=== PATIENT | male | born 1985 | race American Indian/Alaskan Native ===

== ENCOUNTER 2020-03-29 05:52 | Emergency (ER) | payer MEDICAID ==
[2020-03-29 06:07] VITALS: BP 131/78
--- NOTE | 2020-03-29 06:23 | Emergency Department Report ---
ED Male HPI - General Chief complaint: Rectal Pain Stated complaint: HEMORRHOIDS Time Seen by Provider: 03/29/20 06:16 Source: patient Mode of arrival: Ambulatory Limitations: No Limitations - History of Present Illness Initial comments: 34-year-old male with history of hemorrhage emerged department complaining of flareup of hemorrhoids over the past few weeks due to constipation episodes. He request medication help resolve his hemorrhoid flareup. Reports no current hemoptysis, hematemesis or hematochezia. No fever, chills, sweats no lower abd ominal pain. Severity: mild, moderate Quality: burning, dull Improves with: none Worsens with: none new medication denies: urinary retention, fever, nausea/vomiting, incontinence - Related Data Previous Rx's Medication Instructions Recorded Last Taken Type Hydrocortisone [Anusol-Hc 2.5% TOP 0.5 gm RC BID #30 cream..g. 03/29/20 Unknown Rx CREAM] Lidocaine Viscous 2% 2.5 ml RC Q4HR PRN #120 ml 03/29/20 Unknown Rx Allergies Allergy/AdvReac Type Severity Reaction Status Date / Time No Known Allergies Allergy Verified 03/29/20 06:05 ED Review of Systems ROS: Stated complaint: HEMORRHOIDS Other details as noted in HPI Comment: All other systems reviewed and negative ED Past Medical Hx - Past Medical History Previous Medical History?: Yes Hx Seizures: Yes - Surgical History Past Surgical History?: No - Social History Smoking Status: Never Smoker Substance Use Type: None - Medications Home Medications: Home Medications Medication Instructions Recorded Confirmed Last Taken Type Hydrocortisone [Anusol-Hc 2.5% TOP 0.5 gm RC BID #30 cream..g. 03/29/20 Unknown Rx CREAM] Lidocaine Viscous 2% 2.5 ml RC Q4HR PRN #120 ml 03/29/20 Unknown Rx ED Physical Exam - General Limitations: No Limitations General appearance: alert, in no apparent distress - Head Head exam: Present: atraumatic, normocephalic - Eye Eye exam: Present: normal appearance, PERRL, EOMI Pupils: Present: normal accommodation - ENT ENT exam: Present: normal exam, normal orophraynx, mucous membranes moist, TM's normal bilaterally - Neck Neck exam: Present: normal inspection. Absent: tenderness - Respiratory Respiratory exam: Present: normal lung sounds bilaterally. Absent: respiratory distress - Cardiovascular Cardiovascular Exam: Present: regular rate, normal rhythm. Absent: systolic murmur, diastolic murmur, rubs, gallop - GI/Abdominal GI/Abdominal exam: Present: soft, normal bowel sounds. Absent: tenderness - Rectal Rectal exam: Present: deferred, other (Patient requested no examination states he only wanted to be treated) - Extremities Exam Extremities exam: Present: normal inspection - Back Exam Back exam: Present: normal inspection - Neurological Exam Neurological exam: Present: alert, oriented X3 - Psychiatric Psychiatric exam: Present: normal affect, normal mood - Skin Skin exam: Present: warm, dry, intact, normal color. Absent: rash ED Course Vital Signs 03/29/20 06:04 Temperature 98.0 F Pulse Rate 78 Respiratory 17 Rate Blood Pressure 131/78 O2 Sat by Pulse 97 Oximetry Critical care attestation.: If time is entered above; I have spent that time in minutes in the direct care of this critically ill patient, excluding procedure time. ED Disposition Clinical Impression: Hemorrhoids Disposition: DC-01 TO HOME OR SELFCARE Is pt being admited?: No Does the pt Need Aspirin: No Condition: Stable Instructions: Surgical Procedures for Hemorrhoids, Care After, Surgical Procedures for Hemorrhoids Prescriptions: Hydrocortisone [Anusol-Hc 2.5% TOP CREAM] 0.5 gm RC BID #30 cream..g. Lidocaine Viscous 2% 2.5 ml RC Q4HR PRN #120 ml PRN Reason: rectal pain Referrals: [facility] [Provider Group] - 3-5 Days
== END 2020-03-29 06:58 | disposition home or self-care (01) ==
LOC: ED 05:52
DX: K64.9 Unspecified hemorrhoids (principal); G40.909 Epilepsy, unspecified, not intractable, without status epilepticus; Z79.899 Other long term (current) drug therapy
CPT/HCPCS: 99282

== ENCOUNTER 2020-04-14 01:41 | Emergency (ER) | payer MEDICAID ==
[2020-04-14 01:51] VITALS: BP 127/88
--- NOTE | 2020-04-14 02:28 | Emergency Department Report ---
ED General Adult HPI - General Chief complaint: Urogenital-Male Stated complaint: UTI Time Seen by Provider: 04/14/20 01:59 Source: patient Mode of arrival: Ambulatory Limitations: No Limitations - History of Present Illness Initial comments: Pt is a 34 y/o aam who presents for dysuria, frequency and flank pain x 1 week, pt denies fever or chills, no n/v denies STI , no hx of renal stones. Symptoms are excerbated by voiding, symptoms are relieved by nothing tried. - Related Data Previous Rx's Medication Instructions Recorded Last Taken Type Hydrocortisone [Anusol-Hc 2.5% TOP 0.5 gm RC BID #30 cream..g. 03/29/20 Unknown Rx CREAM] Lidocaine Viscous 2% 2.5 ml RC Q4HR PRN #120 ml 03/29/20 Unknown Rx Doxycycline Hyclate [Doxycycline 100 mg PO BID #20 tab 04/14/20 Unknown Rx Hyclate TAB] Allergies Allergy/AdvReac Type Severity Reaction Status Date / Time No Known Allergies Allergy Verified 03/29/20 06:05 ED Review of Systems ROS: Stated complaint: UTI Other details as noted in HPI Constitutional: denies: chills, fever Eyes: denies: eye pain, eye discharge, vision change ENT: denies: ear pain, throat pain Respiratory: denies: cough, shortness of breath, wheezing Cardiovascular: denies: chest pain, palpitations Endocrine: no symptoms reported Gastrointestinal: denies: abdominal pain, nausea, vomiting, diarrhea Genitourinary: urgency, dysuria, frequency. denies: hematuria, discharge, testicular pain, testicular mass Musculoskeletal: as per HPI, back pain (left flank) Skin: denies: rash, lesions Neurological: denies: headache, weakness, paresthesias Psychiatric: denies: anxiety, depression Hematological/Lymphatic: denies: easy bleeding, easy bruising ED Past Medical Hx - Past Medical History Previous Medical History?: Yes Hx Seizures: Yes - Surgical History Past Surgical History?: No - Social History Smoking Status: Never Smoker Substance Use Type: None - Medications Home Medications: Home Medications Medication Instructions Recorded Confirmed Last Taken Type Hydrocortisone [Anusol-Hc 2.5% TOP 0.5 gm RC BID #30 cream..g. 03/29/20 Unknown Rx CREAM] Lidocaine Viscous 2% 2.5 ml RC Q4HR PRN #120 ml 03/29/20 Unknown Rx Doxycycline Hyclate [Doxycycline 100 mg PO BID #20 tab 04/14/20 Unknown Rx Hyclate TAB] ED Physical Exam - General Limitations: No Limitations General appearance: alert, in no apparent distress - Head Head exam: Present: atraumatic, normocephalic - Eye Eye exam: Present: normal appearance, EOMI Pupils: Present: normal accommodation - ENT ENT exam: Present: mucous membranes moist - Neck Neck exam: Present: normal inspection, full ROM. Absent: tenderness - Respiratory Respiratory exam: Present: normal lung sounds bilaterally. Absent: respiratory distress - Cardiovascular Cardiovascular Exam: Present: regular rate, normal rhythm, normal heart sounds. Absent: systolic murmur, diastolic murmur, rubs, gallop - GI/Abdominal GI/Abdominal exam: Present: soft, normal bowel sounds. Absent: distended, tenderness, guarding, rebound, rigid, bruit, hernia - Rectal Rectal exam: Present: deferred - Extremities Exam Extremities exam: Present: normal inspection, full ROM - Back Exam Back exam: Present: normal inspection, full ROM, CVA tenderness (L). Absent: CVA tenderness (R), vertebral tenderness - Neurological Exam Neurological exam: Present: alert, oriented X3, CN II-XII intact, normal gait - Psychiatric Psychiatric exam: Present: normal affect, normal mood - Skin Skin exam: Present: warm, dry, intact, normal color. Absent: rash ED Course Vital Signs 04/14/20 01:46 Temperature 97.6 F Pulse Rate 62 Respiratory 16 Rate Blood Pressure 127/88 O2 Sat by Pulse 99 Oximetry ED Medical Decision Making - Lab Data Labs 04/14/20 02:28 Urine Color Yellow Urine Turbidity Clear Urine pH 5.0 Ur Specific [place] 1.024 Urine Protein <15 mg/dl Urine Glucose (UA) Neg Urine Ketones Neg Urine Blood Neg Urine Nitrite Neg Urine Bilirubin Neg Urine Urobilinogen < 2.0 Ur Leukocyte Esterase Neg Urine WBC (Auto) < 1.0 Urine RBC (Auto) 1.0 Urine Mucus 3+ - Medical Decision Making ua: normal, plan tx for dysuria, , there is no fever or chills, no n/v. pt is tolerating po , plan, dc to home , with rx, pt will follow up with pcp in 2-3 days, pt verbalized agreement and understanding same, pt dc'd to home in stable condition at this time. Critical care attestation.: If time is entered above; I have spent that time in minutes in the direct care of this critically ill patient, excluding procedure time. ED Disposition Clinical Impression: Dysuria Disposition: DC-01 TO HOME OR SELFCARE Is pt being admited?: No Does the pt Need Aspirin: No Condition: Stable Instructions: Dysuria Prescriptions: Doxycycline Hyclate [Doxycycline Hyclate TAB] 100 mg PO BID #20 tab Referrals: [facility] [Provider Group] - 3-5 Days Forms: Work/School Release Form(ED)
[2020-04-14 02:53] LABS: Bilirubin,Urine NEG (Negative); Blood,Urine NEG (Negative); Color,Urine Yellow (Yellow); Mucus,Urine 3+ /HPF; Protein,Urine <15 mg/dL mg/dL (Negative); Urobilinogen,Urine < 2.0 mg/dL (<2.0); WBC,Urine < 1.0 /HPF (0.0-6.0)
== END 2020-04-14 04:18 | disposition home or self-care (01) ==
LOC: ED 01:41
DX: R30.0 Dysuria (principal); R56.9 Unspecified convulsions; Z79.899 Other long term (current) drug therapy
CPT/HCPCS: 81001

== ENCOUNTER 2020-05-21 04:48 | Emergency (ER) | payer MEDICAID ==
[2020-05-21 05:15] VITALS: BP 137/61
[2020-05-21] MEDS ORDERED: KETOROLAC 30 MG/1 ML INJ IM ONE (06:16)
--- NOTE | 2020-05-21 06:34 | Emergency Department Report ---
ED Back Pain/Injury HPI - General Chief Complaint: Back Pain/Injury Stated Complaint: LEFT LEG PAIN Time Seen by Provider: 05/21/20 06:29 Source: patient Limitations: No Limitations - History of Present Illness Initial Comments: Patient a 35-year-old -Spanish male who presents for left low back pain radiating the left leg x1 week. Patient states he slipped and fell after having a seizure to 1 week ago. States he was prescribed ibuprofen and muscle relaxant. States pain was improved with same however he is almost out of medication and pain lingers. Is been no new fall injury or trauma. There has been no loss or decrease in bowel or bladder function. Patient drove self to ED tonight, patient is amatory with steady gait with no acute distress at this time. Patient rates pain at 5/10 and reproducible to movement bending and twisting. MD Complaint: back pain - Related Data Previous Rx's Medication Instructions Recorded Last Taken Type Hydrocortisone [Anusol-Hc 2.5% TOP 0.5 gm RC BID #30 cream..g. 03/29/20 Unknown Rx CREAM] Lidocaine Viscous 2% 2.5 ml RC Q4HR PRN #120 ml 03/29/20 Unknown Rx Doxycycline Hyclate [Doxycycline 100 mg PO BID #20 tab 04/14/20 Unknown Rx Hyclate TAB] Diclofenac Dr [[place]] 75 mg PO TID PRN #30 tablet 05/21/20 Unknown Rx Menthol/Camphor [[place] 1 applicatio TP Q6H #1 tube 05/21/20 Unknown Rx Ointment] Metaxalone [Skelaxin] 800 mg PO TID PRN #30 tablet 05/21/20 Unknown Rx Allergies Allergy/AdvReac Type Severity Reaction Status Date / Time No Known Allergies Allergy Verified 03/29/20 06:05 ED Review of Systems ROS: Stated complaint: LEFT LEG PAIN Other details as noted in HPI Constitutional: denies: chills, fever Eyes: denies: eye pain, eye discharge, vision change ENT: denies: ear pain, throat pain Respiratory: denies: cough, shortness of breath, wheezing Cardiovascular: denies: chest pain, palpitations Endocrine: no symptoms reported Gastrointestinal: denies: abdominal pain, nausea, diarrhea Genitourinary: denies: urgency, dysuria Musculoskeletal: back pain, myalgia Skin: denies: rash, lesions Neurological: as per HPI Psychiatric: denies: anxiety, depression Hematological/Lymphatic: denies: easy bleeding, easy bruising ED Past Medical Hx - Past Medical History Previous Medical History?: Yes Hx Seizures: Yes - Surgical History Past Surgical History?: No - Social History Smoking Status: Never Smoker Substance Use Type: None - Medications Home Medications: Home Medications Medication Instructions Recorded Confirmed Last Taken Type Hydrocortisone [Anusol-Hc 2.5% TOP 0.5 gm RC BID #30 cream..g. 03/29/20 Unknown Rx CREAM] Lidocaine Viscous 2% 2.5 ml RC Q4HR PRN #120 ml 03/29/20 Unknown Rx Doxycycline Hyclate [Doxycycline 100 mg PO BID #20 tab 04/14/20 Unknown Rx Hyclate TAB] Diclofenac Dr [Voltaren Dr] 75 mg PO TID PRN #30 tablet 05/21/20 Unknown Rx Menthol/Camphor [[place] 1 applicatio TP Q6H #1 tube 05/21/20 Unknown Rx Ointment] Metaxalone [Skelaxin] 800 mg PO TID PRN #30 tablet 05/21/20 Unknown Rx ED Physical Exam - General Limitations: No Limitations General appearance: alert, in no apparent distress - Head Head exam: Present: atraumatic, normocephalic - Eye Eye exam: Present: PERRL, EOMI Pupils: Present: normal accommodation - ENT ENT exam: Present: mucous membranes moist - Neck Neck exam: Present: normal inspection, full ROM. Absent: tenderness - Respiratory Respiratory exam: Present: normal lung sounds bilaterally. Absent: respiratory distress, wheezes, stridor - Cardiovascular Cardiovascular Exam: Present: regular rate, normal rhythm, normal heart sounds. Absent: systolic murmur, diastolic murmur, rubs, gallop - GI/Abdominal GI/Abdominal exam: Present: soft, normal bowel sounds. Absent: distended, tenderness - Rectal Rectal exam: Present: deferred - Extremities Exam Extremities exam: Present: normal inspection, full ROM. Absent: tenderness - Back Exam Back exam: Present: full ROM, muscle spasm, paraspinal tenderness. Absent: CVA tenderness (R), CVA tenderness (L), vertebral tenderness (NO Posterior vertebral point tenderness mild paraspinus muscle tenderness to deep palpation pos straight leg left. ) - Expanded Back Exam Expanded Back exam: Absent: saddle anesthesia Back exam: Positive Straight Leg Raise: Left, Negative Straight Leg Raising: Right - Neurological Exam Neurological exam: Present: alert, oriented X3, CN II-XII intact, normal gait, reflexes normal. Absent: motor sensory deficit - Expanded Neurological Exam Expanded Patient oriented to: Present: person, place, time Motor strength exam: RLE: 5, LLE: 5 DTR: knee (R): 2+, knee (L): 2+ Best Eye Response ([place]): (4) open spontaneously Best Motor Response ([place]): (6) obeys commands Best Verbal Response ([place]): (5) oriented [place] Total: 15 - Psychiatric Psychiatric exam: Present: normal affect, normal mood - Skin Skin exam: Present: warm, dry, intact, normal color. Absent: rash ED Course Vital Signs 05/21/20 05:04 Temperature 98.1 F Pulse Rate 52 L Respiratory 16 Rate Blood Pressure 137/61 O2 Sat by Pulse 100 Oximetry ED Medical Decision Making - Medical Decision Making This is a lumbar muscle strain. Plan medication change NSAIDs, muscle relaxant, analgesic balm, moist heat therapy, back exercises, if symptoms persist follow- up with orthopedics as directed. Critical care attestation.: If time is entered above; I have spent that time in minutes in the direct care of this critically ill patient, excluding procedure time. ED Disposition Clinical Impression: Strain of lumbar paraspinal muscle Qualifiers: Encounter type: subsequent encounter Qualified Code(s): S39.012D - Strain of muscle, fascia and tendon of lower back, subsequent encounter Disposition: - TO HOME OR SELFCARE Is pt being admited?: No Does the pt Need Aspirin: No Condition: Stable Instructions: Low Back Sprain or Strain Rehab-SportsMed Prescriptions: Metaxalone [Skelaxin] 800 mg PO TID PRN #30 tablet PRN Reason: pain Menthol/Camphor [[place] Ointment] 1 applicatio TP Q6H #[address] [Voltaren Dr] 75 mg PO TID PRN #30 tablet PRN Reason: Pain Referrals: VANESSA PHIPPS MD [Staff Physician] - 3-5 Days Forms: Work/School Release Form(ED) Time of Disposition: 06:39
== END 2020-05-21 06:40 | disposition home or self-care (01) ==
LOC: ED 04:48
DX: S39.012A Strain of muscle, fascia and tendon of lower back, initial encounter (principal); R56.9 Unspecified convulsions; Z79.899 Other long term (current) drug therapy; W01.0XXA Fall on same level from slipping, tripping and stumbling without subsequent striking against object, initial encounter; Y93.89 Activity, other specified; Y92.89 Other specified places as the place of occurrence of the external cause; Y99.8 Other external cause status
CPT/HCPCS: 96372; 99282; J1885